=== PATIENT | male | born 1985 | race Caucasian/White ===

== ENCOUNTER 2017-06-22 12:33 | Emergency (ER) | payer OTHER ==
[2017-06-22] MEDS ORDERED: Acetaminophen 500 MG TAB ONE (13:06)
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
== END 2017-06-22 14:03 | disposition home or self-care (01) ==
LOC: ERS 12:33
DX: S63.502A Unspecified sprain of left wrist, initial encounter (principal); Z87.891 Personal history of nicotine dependence; V43.52XA Car driver injured in collision with other type car in traffic accident, initial encounter

== ENCOUNTER 2018-05-06 15:34 | Outpatient (CLI) | payer BC ==
--- NOTE | 2018-05-06 17:37 | RAD ---
FOUR VIEWS OF RIGHT KNEE: INDICATION: Crepitus in the right knee joint. COMPARISON: None. FINDINGS: No acute fracture or subluxation is evident. No joint capsular distention is evident. IMPRESSION: Right knee appears radiographically normal. POS: [facility]
--- NOTE | 2018-05-06 17:41 | RAD ---
4 VIEWS LEFT KNEE: Date: 05/06/18 COMPARISON: None. HISTORY: Left knee pain and crepitus. FINDINGS: Four views of the left knee show no evidence of acute fracture or dislocation. No knee effusion is se en. No degenerative changes are seen. IMPRESSION: Unremarkable exam. POS: [facility]
== END 2018-05-06 15:35 | disposition home or self-care (01) ==
LOC: BICRAD 15:34
PROVIDERS: ATTEND Family Medicine
DX: M23.8X1 Other internal derangements of right knee (principal); M23.8X2 Other internal derangements of left knee

== ENCOUNTER 2022-05-20 11:49 | Outpatient (CLI) | payer BC | END 2022-05-20 11:50 | disposition home or self-care (01) | LOC: BICRAD 11:49 | PROVIDERS: ATTEND Family Medicine | DX: R05.1 Acute cough (principal); J18.9 Pneumonia, unspecified organism | CPT/HCPCS: 71046 ==